=== PATIENT | female | born 1965 | race Caucasian/White ===

== ENCOUNTER 2018-08-15 12:34 | Inpatient (IN) | payer SELFPAY ==
[~2018-08-15] VITALS: Ht 144.8 cm; Wt 99.8 kg
--- NOTE | 2018-08-15 13:27 | ER Report ---
History and Physical Time Seen By MD: 13:27 Allergies: Coded Allergies: Sulfa (Sulfonamide Antibiotics) (Verified Allergy, Unknown, 08/15/18) cefuroxime (Verified Allergy, Unknown, 08/15/18) Home Meds Reported Medications Lisinopril (LISINOPRIL) 20 Mg Tablet, 20 MG PO QDAY, TAB 08/15/18 Metoprolol Succinate (METOPROLOL SUCCINATE) 25 Mg Tab.er.24h, 1 TAB PO QDAY, TAB 08/15/18 Azithromycin (ZITHROMAX) 250 Mg Tablet, 1 TAB PO QDAY, TAB 08/15/18 Budesonide (BUDESONIDE) 0.25 Mg/2 Ml Ampul.neb, 0.25 MG IH BID, ML 08/15/18 Prednisone (PREDNISONE) 20 Mg Tablet, 20 MG PO BID, TAB 08/15/18 Albuterol Sulfate 90 Mcg/Act (PROAIR HFA 90 MCG/ACT) 8.5 Gm Hfa.aer.ad, 1-2 PUFF IH 3-4XD, INHALER 08/15/18 Mometasone/Formoterol (DULERA 100 MCG/5 MCG INHALER) 13 Gm Inh, 13 GM INH, INH 08/15/18 Depart Departure Condition: Stable Disposition: HOME OR SELF-CARE SAM WALTON Aug 15, 2018 13:27
[2018-08-15] MEDS ORDERED: AZIT-1 PO (13:33)
[2018-08-15] MEDS ORDERED: PRED20TA6 PO (13:33)
[2018-08-15] MEDS ORDERED: BUDE0.256 IH (13:33)
[2018-08-15] MEDS ORDERED: ALBU8.5H IH (13:33)
[2018-08-15] MEDS ORDERED: DUL100/5PT INH (13:33)
[2018-08-15] MEDS ORDERED: LISI20TA29 PO ×2 (13:33→17:13)
[2018-08-15] MEDS ORDERED: METO25TA23 PO (13:33)
--- NOTE | 2018-08-15 13:42 | ER Report ---
History and Physical Time Seen By MD: 13:42 Hx. of Stated Complaint: presents from home for increasing L leg pain x 1 week, increased SOB, was due for CT scan in June but did not go. HPI/ROS CHIEF COMPLAINT: Shortness breath, left lower extremity swelling, increased dyspnea HISTORY OF PRESENT ILLNESS: Patient is a 53-year-old female with a history of asthma here with complaints of left lower extremity edema, increasing shortness breath, hypoxia in the setting of asthma with suspected exacerbation. Patient reportedly was seen several days ago at urgent care several days ago and placed on prednisone, Z-Chong for suspected may acquired pneumonia. Patient reports increased dyspnea, cough, left lower extremity calf pain and swelling. Patient was found to be hypoxic in the 80s with no prior supplemental oxygen r equirement. She is a current smoker of approximately one half pack per day. REVIEW OF SYSTEMS: Constitutional: No fever, no chills. Eyes: No discharge. ENT: No sore throat. Cardiovascular: + mild chest pain, no palpitations. Respiratory: + cough, + increased shortness of breath. Gastrointestinal: No abdominal pain, no vomiting. Genitourinary: No hematuria. Musculoskeletal: + left calf tenderness x 1 week Skin: No rashes. Neurological: No headache. Allergies: Coded Allergies: Sulfa (Sulfonamide Antibiotics) (Verified Allergy, Unknown, 08/15/18) cefuroxime (Verified Allergy, Unknown, 08/15/18) Home Meds Active Scripts Iron Ag,Ps/C/Fa6/B12/Zn/SA/Sto (Niferex Tablet) 150MG-60-1 Tablet, 1 TAB PO BID, #60 TAB 1 Refill Prov:SAM SOLER MD 08/16/18 Oxycodone Hcl (OXYCODONE HCL) 5 Mg Tablet, 5-10 MG PO Q6H PRN for PAIN for 7 Days, #30 TAB 0 Refills Prov:SAM SOLER MD 08/16/18 Enoxaparin Sodium (LOVENOX) 100 Mg/1 Ml Disp.syrin, 100 MG SQ Q12H for 3 Days, #6 SYR Prov:SAM SOLER MD 08/16/18 Warfarin Sodium (COUMADIN) 5 Mg Tablet, 5 MG PO QDAY@13 for 30 Days, #30 TAB 0 Refills Prov:SAM SOLER MD 08/16/18 Reported Medications Lisinopril (LISINOPRIL) 20 Mg Tablet, 20 MG PO QDAY, TAB 08/15/18 Metoprolol Succinate (METOPROLOL SUCCINATE) 25 Mg Tab.er.24h, 1 TAB PO QDAY, TAB 08/15/18 Azithromycin (ZITHROMAX) 250 Mg Tablet, 1 TAB PO QDAY, TAB 08/15/18 Prednisone (PREDNISONE) 20 Mg Tablet, 20 MG PO BID, TAB 08/15/18 Albuterol Sulfate 90 Mcg/Act (PROAIR HFA 90 MCG/ACT) 8.5 Gm Hfa.aer.ad, 1-2 PUFF IH 3-4XD, INHALER 08/15/18 Mometasone/Formoterol (DULERA 100 MCG/5 MCG INHALER) 13 Gm Inh, 13 GM INH, INH 08/15/18 Discontinued Reported Medications Budesonide (BUDESONIDE) 0.25 Mg/2 Ml Ampul.neb, 0.25 MG IH BID, ML 08/15/18 Lisinopril (LISINOPRIL) 10 Mg Tablet, 25 MG PO QDAY, TAB 08/15/18 Lisinopril (LISINOPRIL) 20 Mg Tablet, 20 MG PO QDAY, TAB 08/15/18 Constitutional Vital Sign - Last 24 Hours 08/15/18 08/15/18 08/15/18 08/15/18 13:33 13:56 13:56 14:02 Temp 98.5 Pulse 73 74 76 Resp 16 18 18 B/P (MAP) 149/97 Pulse Ox 86 95 O2 Delivery Room Air Nasal Cannula O2 Flow Rate 2.0 08/15/18 08/15/18 08/15/18 08/15/18 14:02 14:20 14:22 15:37 Pulse 72 68 Resp 16 16 B/P (MAP) 149/97 (114) 139/85 (103) Pulse Ox 94 94 92 O2 Delivery Nasal Cannula Room Air Nasal Cannula O2 Flow Rate 2.0 2 2.0 2 Physical Exam General Appearance: The patient is alert, has no immediate need for airway protection and no signs of toxicity. Mild distress secondary to shortness of breath. Eyes: Pupils equal and round no pallor or injection. ENT, Mouth: Mucous membranes are moist. Respiratory: There are no retractions, lungs are clear to auscultation. Cardiovascular: Regular rate and rhythm. Gastrointestinal: Abdomen is soft and non tender, no masses, bowel sounds normal. Neurological: NV intact with no focal deficits Skin: Warm and dry, no rashes. Musculoskeletal: Neck is supple non tender. Left calf tenderness with mild edema without erythema DIFFERENTIAL DIAGNOSIS: After history and physical exam differential diagnosis was considered for shortness of breath including but not limited to pulmonary infectious process, COPD, asthma, pulmonary embolus and congestive heart failure, DVT Medical Decision Making Data Points Result Diagram: 08/16/18 0353 08/16/18 0353 Laboratory Hematology Test 08/15/18 13:35 08/15/18 16:06 Activated Partial Thromboplast Time 26 seconds (23-35) Total Bilirubin 0.4 mg/dl (0.2-1.3) Aspartate Amino Transf (AST/SGOT) 48 U/L (0-35) Alanine Aminotransferase (ALT/SGPT) 113 U/L (0-56) Alkaline Phosphatase 92 U/L (0-126) Troponin I < 0.012 ng/ml B-Type Natriuretic Peptide 357 pg/ml (0-100) Total Protein 7.1 g/dl (6.3-8.2) Albumin 4.1 g/dl (3.5-5.0) Urine Color Yellow Urine Clarity Clear Urine pH 6.0 pH (4.8-9.5) Urine Specific [place] 1.036 Urine Protein Negative mg/dL (NEGATIVE) Urine Glucose (UA) Negative mg/dL (NEGATIVE) Urine Ketones Negative mg/dL (NEGATIVE) Urine Blood Negative (NEGATIVE) Urine Nitrite Negative (NEGATIVE) Urine Bilirubin Negative (NEGATIVE) Urine Urobilinogen Negative mg/dL (0.2-1.9) Urine Leukocyte Esterase Negative (NEGATIVE) Urine RBC <1 /HPF (0-2/HPF) Urine WBC 1 /HPF (0-5/HPF) Urine Squamous Epithelial Cells Few /LPF (</=FEW) Urine Bacteria Negative /HPF (NONE-FEW) Urine Mucus None /HPF (NONE-FEW) Chemistry Test 08/15/18 13:35 08/15/18 16:06 Activated Partial Thromboplast Time 26 seconds (23-35) Total Bilirubin 0.4 mg/dl (0.2-1.3) Aspartate Amino Transf (AST/SGOT) 48 U/L (0-35) Alanine Aminotransferase (ALT/SGPT) 113 U/L (0-56) Alkaline Phosphatase 92 U/L (0-126) Troponin I < 0.012 ng/ml B-Type Natriuretic Peptide 357 pg/ml (0-100) Total Protein 7.1 g/dl (6.3-8.2) Albumin 4.1 g/dl (3.5-5.0) Urine Color Yellow Urine Clarity Clear Urine pH 6.0 pH (4.8-9.5) Urine Specific [place] 1.036 Urine Protein Negative mg/dL (NEGATIVE) Urine Glucose (UA) Negative mg/dL (NEGATIVE) Urine Ketones Negative mg/dL (NEGATIVE) Urine Blood Negative (NEGATIVE) Urine Nitrite Negative (NEGATIVE) Urine Bilirubin Negative (NEGATIVE) Urine Urobilinogen Negative mg/dL (0.2-1.9) Urine Leukocyte Esterase Negative (NEGATIVE) Urine RBC <1 /HPF (0-2/HPF) Urine WBC 1 /HPF (0-5/HPF) Urine Squamous Epithelial Cells Few /LPF (</=FEW) Urine Bacteria Negative /HPF (NONE-FEW) Urine Mucus None /HPF (NONE-FEW) Coagulation Test 08/15/18 13:35 Activated Partial Thromboplast Time 26 seconds Urinalysis Test 08/15/18 16:06 Urine Color Yellow Urine Clarity Clear Urine pH 6.0 pH (4.8-9.5) Urine Specific [place] 1.036 Urine Protein Negative mg/dL (NEGATIVE) Urine Glucose (UA) Negative mg/dL (NEGATIVE) Urine Ketones Negative mg/dL (NEGATIVE) Urine Blood Negative (NEGATIVE) Urine Nitrite Negative (NEGATIVE) Urine Bilirubin Negative (NEGATIVE) Urine Urobilinogen Negative mg/dL (0.2-1.9) Urine Leukocyte Esterase Negative (NEGATIVE) Urine RBC <1 /HPF (0-2/HPF) Urine WBC 1 /HPF (0-5/HPF) Urine Squamous Epithelial Cells Few /LPF (</=FEW) Urine Bacteria Negative /HPF (NONE-FEW) Urine Mucus None /HPF (NONE-FEW) EKG/Imaging Monitor Interpretation: Normal Sinus Rhythm Imaging Left lower extremity venous Doppler duplex ultrasound scan. HISTORY: Left calf swelling, pulmonary embolism. COMPARISON: Chest CTA scan 08/15/2018. A venous color flow Doppler duplex ultrasound scan with spectral analysis was performed on the left lower extremity. Noncompressible thrombus is present in the trifurcation veins, popliteal vein, superficial femoral vein, common femoral vein, and profunda femoris vein. The left iliac veins are obscured. IMPRESSION: Extensive left lower extremity deep vein thrombosis. CTA CHEST WW/O CNTR (PULM ANG) HISTORY: RESP DISTRESS ADDITIONAL HISTORY: None. TECHNIQUE: CTA chest with intravenous contrast. Axial imaging acquired following administration of IV contrast timed for maximum opacification of the pulmonary arterial vasculature. Slab 3-D MIP reconstructed images were also created for further evaluation and interpretation. Reconstruction of the source data set includes multiplanar 2-D in the sagittal and coronal planes and 3-D reconstructed coronal slab MIP series. 3-D images were created by the technologist.Dose Lowering Technique One of the following dose optimization techniques was utilized in the performance of this exam: Automated exposure control; adjustment of the mA and/or kV according to the patient's size; or use of an iterative reconstruction technique. Specific details can be referenced in the facility's radiology CT exam operational policy. CONTRAST: 75 mL Isovue-370 COMPARISON: None. FINDINGS: Lungs/pleura: Negative. Heart/vessels: Pulmonary emboli is identified in the lobar segmental and subsegmental arterial branches to the right lower lobe in the lobar and segmental vessels to the right middle lobe, segmental and subsegmental arterial branches to the left lower lobe. Mediastinum/lymph nodes: Negative. Visualized upper abdomen: Negative. Bones/soft tissues: Negative. Additional findings: None IMPRESSION: There is a moderate volume of pulmonary emboli in the lobar segmental and subsegmental arterial branches to the right lower lobe, lobar and segmental vessels to the right middle lobe and segmental and subsegmental arterial branches to the left lower lobe. ED Course/Re-evaluation ED Course Patient is a 53-year-old female here with complaints of increasing dyspnea over the past week, left lower extremity swelling at the calf with mild edema acutely worsen or past several days. Patient does have history significant for asthma, active smoking history approximately one half pack per day. She was seen several days ago at urgent care and placed on prednisone and azithromycin. Today she reported worsening symptoms prompting evaluation. Due to the patient's history and physical examination, decision was made to do a CT PE and a duplex of the left lower extremity. Patient was noted to have a lateral pulmonary embolisms of the right lower lobe, right middle lobe, left lower lobe and left lower extremity DVT. Patient was also noted to have leukocytosis of 17.9. Lungs are clear to auscultation at time of evaluation. She was placed on supplemental oxygen which she does not require baseline due to hypoxia. I discussed the patient with hospitalist and give the patient a dose of Levaquin and Lovenox. Heparin had been canceled after discussing with the hospitalist. Patient also received IV fluids, DuoNeb. Patient remained otherwise hemodynamically stable throughout course. Patient was admitted to the hospitalist service in stable condition. Decision to Disposition Date: Aug 15, 2018 Decision to Disposition Time: 14:00 Depart Departure Latest Vital Signs Vital Signs Date Time Temp Pulse Resp B/P (MAP) Pulse Ox O2 Delivery O2 Flow Rate FiO2 08/15/18 15:37 68 16 139/85 (103) 92 Nasal Cannula 2 08/15/18 13:33 98.5 Impression: Primary Impression: PE (pulmonary thromboembolism) Condition: Improved Disposition: Admitted from ER (admitted to hospitalist service) New Scripts Iron Ag,Ps/C/Fa6/B12/Zn/SA/Sto (Niferex Tablet) 150MG-60-1 Tablet 1 TAB PO BID, #60 TAB 1 Refill Prov: SAM SOLER MD 08/16/18 Oxycodone Hcl (OXYCODONE HCL) 5 Mg Tablet 5-10 MG PO Q6H PRN for PAIN for 7 Days, #30 TAB 0 Refills Prov: SAM SOLER MD 08/16/18 Enoxaparin Sodium (LOVENOX) 100 Mg/1 Ml Disp.syrin 100 MG SQ Q12H for 3 Days, #6 SYR Prov: SAM SOLER MD 08/16/18 Warfarin Sodium (COUMADIN) 5 Mg Tablet 5 MG PO QDAY@13 for 30 Days, #30 TAB 0 Refills Prov: SAM SOLER MD 08/16/18 PAM RICHARDSON DO Aug 15, 2018 13:42
[2018-08-15] MEDS ORDERED: NS(*) 0.9% 1000 ML BAG 1,000 ML IV ONE (13:43)
[2018-08-15] MEDS ORDERED: ALBUTEROL/IPRATROPIUM 3 ML NEB NEB ONE (13:45)
[2018-08-15 14:19] LABS: INR 1.09
[2018-08-15 14:24] LABS: PLATELET COUNT, AUTOMATED 239 K/uL (150-450)
--- NOTE | 2018-08-15 14:24 | EKG ---
FAC[facility] PATIENT NAME: MARY WELDON : [id number] MR: [id number] V: [id number] EXAM DATE: ORDERING PHYSICIAN: PAM RICHARDSON TECHNOLOGIST: PAULA Test Reason : L LEG PAIN Blood Pressure : / mmHG Vent. Rate : 071 BPM Atrial Rate : 071 BPM P-R Int : 134 ms QRS Dur : 084 ms QT Int : 374 ms P-R-T Axes : -09 025 -45 degrees QTc Int : 406 ms Normal sinus rhythm Anterior infarct , age undetermined Diffuse T inversion Abnormal ECG No previous ECGs available Confirmed by JETT PRATT ([id number]) on 08/15/2018 8:42:25 PM Referred By: DEBRA Confirmed By:JETT PRATT
[2018-08-15] MEDS ORDERED: NS(*) 0.9% 50 ML BAG 50 ML ONE (14:40)
[2018-08-15] MEDS ORDERED: IOPAMIDOL 76% 75 ML INFUS BTL 75 ML ONE (14:40)
--- NOTE | 2018-08-15 15:47 | RADIOLOGY IMAGING REPORT ---
FACILITY: [facility] [place] PATIENT NAME: Blessing Leblanc : 1965 MR: [id number] V: [id number] EXAM DATE: [id number] ORDERING PHYSICIAN: PAM RICHARDSON TECHNOLOGIST: Location: [facility] [place] Patient: Blessing Leblanc : 1965 Visit/Account:[id number] Date of Sevice: 08/15/2018 CTA CHEST WW/O CNTR (PULM ANG) HISTORY: RESP DISTRESS ADDITIONAL HISTORY: None. TECHNIQUE: CTA chest with intravenous contrast. Axial imaging acquired following administration of IV contrast timed for maximum opacification of the pulmonary arterial vasculature. Slab 3-D MIP carolann nstructed images were also created for further evaluation and interpretation. Reconstruction of the [facility] data set includes multiplanar 2-D in the sagittal and coronal planes and 3-D reconstructed saúl nal slab MIP series. 3-D images were created by the technologist.Dose Lowering Technique One of the following dose optimization techniques was utilized in the performance of this exam: Autom ated exposure control; adjustment of the mA and/or kV according to the patient's size; or use of an i terative reconstruction technique. Specific details can be referenced in the facility's radiology C T exam operational policy. CONTRAST: 75 mL Isovue-370 COMPARISON: None. FINDINGS: Lungs/pleura: Negative. Heart/vessels: Pulmonary emboli is identified in the lobar segmental and subsegmental arterial branc hes to the right lower lobe in the lobar and segmental vessels to the right middle lobe, segmental an d subsegmental arterial branches to the left lower lobe. Mediastinum/lymph nodes: Negative. Visualized upper abdomen: Negative. Bones/soft tissues: Negative. Additional findings: None IMPRESSION: There is a moderate volume of pulmonary emboli in the lobar segmental and subsegmental arterial branc hes to the right lower lobe, lobar and segmental vessels to the right middle lobe and segmental and s ubsegmental arterial branches to the left lower lobe. Results were called to PAM RICHARDSON at 08/15/2018 3:32 PM. Report Dictated By: Lea Welch MD at 08/15/2018 3:27 PM Report E-Signed By: Lea Welch MD at 08/15/2018 3:42 PM WSN:MARIA ANTONIACIVN
[2018-08-15] MEDS ORDERED: [UNRECOGNIZED DRUG - OTHER] IV SCH ×2 (15:50→16:10)
[2018-08-15] MEDS ORDERED: LEVOFLOXACIN/D5W 750 MG/150 ML 150 ML IVPB ONE (15:50)
[2018-08-15] MEDS ORDERED: HEPARIN (PORC) 5000 UN/ML VIAL IVP ONE ×2 (15:50→16:05)
--- NOTE | 2018-08-15 16:16 | RADIOLOGY IMAGING REPORT ---
FACILITY: [facility] PATIENT NAME: Blessing Leblanc : 1965 MR: [id number] V: [id number] EXAM DATE: ORDERING PHYSICIAN: PAM RICHARDSON TECHNOLOGIST: Location: [facility] [place] Patient: Blessing Leblanc : 1965 Visit/Account:[id number] Date of Sevice: 08/15/2018 Left lower extremity venous Doppler duplex ultrasound scan. HISTORY: Left calf swelling, pulmonary embolism. COMPARISON: Chest CTA scan 08/15/2018. A venous color flow Doppler duplex ultrasound scan with spectral analysis was performed on the left l ower extremity. Noncompressible thrombus is present in the trifurcation veins, popliteal vein, super ficial femoral vein, common femoral vein, and profunda femoris vein. The left iliac veins are obscur ed. IMPRESSION: Extensive left lower extremity deep vein thrombosis. The patient's provider has been paged by the Imaging Nurse Aide Evaluator at 4:15 PM on 08/15/2018.. Report Dictated By: Jaren Russell MD at 08/15/2018 4:07 PM Report E-Signed By: Jaren Russell MD at 08/15/2018 4:12 PM WSN:[email or web address]
[2018-08-15 17:01] VITALS: BP 133/78
[2018-08-15] MEDS ORDERED: LISI-362 PO (17:12)
[2018-08-15 19:02] VITALS: BP 118/73
[2018-08-15] MEDS ORDERED: ALBUTEROL 2.5 MG/3 ML NEB NEB PRN (20:05)
[2018-08-15] MEDS ORDERED: PANTOPRAZOLE SOD 40 MG TABEC PO ONE (20:05)
[2018-08-15] MEDS: WARFARIN SOD 5 MG TAB PO SCH (20:46)
[2018-08-15] MEDS ORDERED: ACETAMINOPHEN 500 MG TAB PO PRN (20:50)
[2018-08-15] MEDS ORDERED: oxyCODONE HCL 5 MG CAP PO PRN (20:50)
[2018-08-15] MEDS ORDERED: NICOTINE 14 MG/24 HR PATCH TD SCH (21:00)
[2018-08-15] MEDS ORDERED: ENOXAPARIN 100 MG/ML SYR SC SCH (21:00)
--- NOTE | 2018-08-15 21:01 | History & Physical ---
History of Present Illness History of Present Illness 53yo female with a h/o cardiomyopathy, obesity, and COPD who came to the ER for left leg pain and SOB. She developed left leg pain about a week ago. She thinks she woke up with it and denies any trauma. The pain isn't the medial calf and radiates around the patella to the popliteal fossa. It was mild at first and she thought it was related to over use. However, it has progressively worsened such that she has had difficulty ambulating. She thought she was having another pneumonia because she was getting SOB, her home pulse oximeter read about 70% and had a productive cough, so went to Urgent care a couple of days ago. They started her on a Z-kisha and a prednisone taper. She, initially, was hypoxic, but they were able to get her room air saturations up with nebulizer treatments. The has never had a DVT or PE. She does smoke 1/2 ppd. She reports that her cardiomyopathy was found incidentally on pre-op work up for a sinus surgery 3 years ago. She ended up getting a heart catheterization. She doesn't know the details of what was found but she is on Toprol. In the ER, she was given levofloxacin, DuoNeb, and IVF. History Problems: (1) HTN (hypertension) Status: Chronic (2) Cardiomyopathy Status: Chronic (3) COPD (chronic obstructive pulmonary disease) Status: Chronic (4) Obesity Home Meds Reported Medications Lisinopril (LISINOPRIL) 20 Mg Tablet, 20 MG PO QDAY, TAB 08/15/18 Metoprolol Succinate (METOPROLOL SUCCINATE) 25 Mg Tab.er.24h, 1 TAB PO QDAY, TAB 08/15/18 Azithromycin (ZITHROMAX) 250 Mg Tablet, 1 TAB PO QDAY, TAB 08/15/18 Budesonide (BUDESONIDE) 0.25 Mg/2 Ml Ampul.neb, 0.25 MG IH BID, ML 08/15/18 Prednisone (PREDNISONE) 20 Mg Tablet, 20 MG PO BID, TAB 08/15/18 Albuterol Sulfate 90 Mcg/Act (PROAIR HFA 90 MCG/ACT) 8.5 Gm Hfa.aer.ad, 1-2 PUFF IH 3-4XD, INHALER 08/15/18 Mometasone/Formoterol (DULERA 100 MCG/5 MCG INHALER) 13 Gm Inh, 13 GM INH, INH 08/15/18 Discontinued Reported Medications Lisinopril (LISINOPRIL) 10 Mg Tablet, 25 MG PO QDAY, TAB 08/15/18 Lisinopril (LISINOPRIL) 20 Mg Tablet, 20 MG PO QDAY, TAB 08/15/18 Allergies: Coded Allergies: Sulfa (Sulfonamide Antibiotics) (Verified Allergy, Unknown, 08/15/18) cefuroxime (Verified Allergy, Unknown, 08/15/18) Patient History: FH: COPD (chronic obstructive pulmonary disease) MOTHER FH: diabetes mellitus MOTHER FH: heart disease MOTHER FH: hypercholesterolemia MOTHER FH: hypertension MOTHER Pulmonary hypertension MOTHER Other Social/Family Hx No alcohol use. Hx Smoking: Yes (1/2 ppd) Exposure to Second Hand Smoke?: Yes Caffeine Intake: Tea Hx Substance Use Disorder: No Review of Systems All Systems Reviewed/Normal: Yes, Except as Noted Exam Vital Signs Vital Signs Date Time Temp Pulse Resp B/P (MAP) Pulse Ox O2 Delivery O2 Flow Rate FiO2 08/15/18 20:01 93 Nasal Cannula 1.5 08/15/18 19:02 97.3 84 20 118/73 (88) General Appearance: Alert, Awake, No Acute Distress Neuro: No Gross deficits Eyes: PERRLA ENT: Moist Mucous Membranes Cardiovascular: Regular Rate and Rhythm, No JVD Respiratory: Clear to Auscultation GI: Abd Soft and Non-Tender Musculoskeletal: Other (positive rolanda's sign on left. Some medial thigh pain with palpation. No difference noted in leg size of visual exam) Extremities: Edema Medical Decision Making Data Points Result Diagram: 08/15/18 1335 08/15/18 133 Item Value Date Time Mean Corpuscular Volume 70.1 fL L 08/15/18 133 Mean Corpuscular Hemoglobin 20.9 pg L 08/15/18 1335 Red Cell Distribution Width 20.7 % H 08/15/18 1335 Neutrophils (%) (Auto) 72.0 % 08/15/18 1335 Prothromb Time International Ratio 1.09 08/15/18 1335 B-Type Natriuretic Peptide 357 pg/ml H 08/15/18 1335 Troponin I < 0.012 ng/ml 08/15/18 1335 Aspartate Amino Transf (AST/SGOT) 48 U/L H 08/15/18 1335 Total Bilirubin 0.4 mg/dl 08/15/18 1335 Alanine Aminotransferase (ALT/SGPT) 113 U/L H 08/15/18 1335 Alkaline Phosphatase 92 U/L 08/15/18 1335 Blood Urea Nitrogen 41 mg/dl H 08/15/18 1335 Creatinine 1.10 mg/dl H 08/15/18 1335 Urine RBC <1 /HPF 08/15/18 1606 Urine WBC 1 /HPF 08/15/18 1606 Urine Squamous Epithelial Cells Few /LPF 08/15/18 1606 Urine Bacteria Negative /HPF 08/15/18 1606 Urine Mucus None /HPF 08/15/18 1606 EKG / Imaging EKG Interpretation NSR, poor r wave progression, and diffuse T wave inversion Imaging Venogram - Extensive left lower extremity deep vein thrombosis. Chest CTA - There is a moderate volume of pulmonary emboli in the lobar segmental and subsegmental arterial branches to the right lower lobe, lobar and segmental vessels to the right middle lobe and segmental and subsegmental arterial branches to the left lower lobe. Assessment and Plan Problems: (1) PE (pulmonary thromboembolism) Status: Acute Assessment & Plan: She presented with a couple days of "bronchitis" symptoms and hypoxia. She was found to have moderate volume bilateral PE. She was started on Lovenox in the ER. One complicating factor is that she has a microcytic anemia. No reports of blood in stool or melena. Will draw a CBC and iron studies before the next dose of Lovenox. She is to get dose of Protonix this evening and in the morning. Will guaiac stools. See below. She will get a dose of warfarin tonight. Daily INR. (2) Microcytic anemia Status: Chronic Assessment & Plan: It is unclear how long she has had this. Will do a work up and watch closely for bleeding. (3) COPD (chronic obstructive pulmonary disease) Status: Chronic Assessment & Plan: Lungs are clear. She was started on a Z-kisha and prednisone taper on 08/12, which she felt has been helping. She received a dose of Levofloxacin in the ER, so will restart azithromycin tomorrow and continue prednisone. Chronic Dulera will be continued with albuterol nebs prn. She reports being on a budesonide neb, but will hold for now because it is a redundant inhaled steroid. (4) Cardiomyopathy Status: Chronic Assessment & Plan: She is reports that 3 years ago this was discovered incidentally on a pre-op work up. She had a heart catheterization and was started on Toprol. The patient isn't sure about EF or other details. Continue Toprol. (5) HTN (hypertension) Status: Chronic Assessment & Plan: Continue lisinopril with parameters. (6) Obesity Venous Thromboembolism Antithrombotics Is Pt On Any Antithrombotics?: Yes Exam Sepsis Risk: No Definite Risk JETT PRATT MD Aug 15, 2018 21:01
[2018-08-15 22:49] VITALS: BP 133/88
[2018-08-16 03:11] VITALS: BP 144/96
[2018-08-16 04:05] LABS: INR 1.14
[2018-08-16 04:28] LABS: PLATELET COUNT, AUTOMATED 194 K/uL (150-450)
[2018-08-16] MEDS ORDERED: ENOXAPARIN 100 MG/ML SYR SC SCH ×2 (05:00→07:00)
[2018-08-16] MEDS ORDERED: MOMETASONE/FORMOT 100MCG/5 MCG IH SCH (06:00)
[2018-08-16 07:59] VITALS: Ht 144.8 cm; Wt 99.8 kg
[2018-08-16 08:23] VITALS: BP 123/85
[2018-08-16] MEDS ORDERED: predniSONE 20 MG TAB PO SCH (09:00)
[2018-08-16] MEDS ORDERED: PANTOPRAZOLE SOD 40 MG TABEC PO SCH (09:00)
[2018-08-16] MEDS ORDERED: METOPROLOL SUCC XL 25 MG TABCR PO SCH (09:00)
[2018-08-16] MEDS ORDERED: LISINOPRIL 20 MG TAB PO SCH (09:00)
[2018-08-16] MEDS ORDERED: ENOX100D5 SQ (10:37)
[2018-08-16] MEDS ORDERED: WARF-1 PO (10:37)
[2018-08-16] MEDS ORDERED: OXYC5TAB38 PO (10:37)
[2018-08-16] MEDS ORDERED: IRON1TAB34 PO (10:37)
--- NOTE | 2018-08-16 10:48 | Hospitalist Depart ---
Discharge Summary Reason for Hosp/Final Diag: (1) PE (pulmonary thromboembolism) Status: Acute Hospital Course & Plan: She presented with a couple days of "bronchitis" symptoms (cough and dyspnea). She was also found to be hypoxic. On CT pulmonary angiogram showed moderate volume bilateral pulmonary emboli. She was started on Lovenox in the ER and oral warfarin therapy was initiated. She remained stable with respect to her pulse and blood pressure. She was borderline hypoxic with room air oxygen saturations in 85-86% range and will be discharged on 1L oxygen continuous. She was doing fairly well and wished to be discharged home if at all possible. She stated she would follow up very closely with her primary care at the local urgent care center. She will be discharged on Lovenox 100mg SQ q12hrs and warfarin 5mg daily. She will need to have a follow up protime/INR on Saturday08/18/18. She was given a Rx for Lovenox for three days of therapy with one refill if needed. If her protime/INR is not therapeutic on Saturday she will need to continue the Lovenox until her INR is >2.0. She will need a minimum of 6-9 months of treatment with anticoagulation. One complicating factor is that she has a microcytic anemia. No reports of obvious blood or melena in her stools. She does, however, have a history of "borderline" anemia throughout her adulthood. She has had heavy menses (7 days of heavy flow with pad changes several times a day) for more than 30 years following two pregnancies. She is now post-menopausal and reports no vaginal/uterine bleeding for 2-3 years. Iron studies are consistent with iron deficiency anemia. She will need to have this fully evaluated. (2) Microcytic anemia Status: Chronic Hospital Course & Plan: (See above). It is unclear how long she has had this, but it sounds as if it is most likely related to her history of heavy menses. She has not had colonoscopy screening as of yet. She was advised she will need t o follow up with her primary care provider very closely and will need to have her colon cancer screening in near future. She was started on Niferex 150 PO BID. She will need follow up on her labs periodically. (3) COPD (chronic obstructive pulmonary disease) Status: Chronic Hospital Course & Plan: Lungs are clear. She was started on a Z-Chong and prednisone taper on 08/12/18, which she felt has been helping. She will complete this regimen. She will continue her Dulera and albuterol prn. (4) Cardiomyopathy Status: Chronic Hospital Course & Plan: She is reports that 3 years ago this was discovered incidentally on a pre-op work up. She had a heart catheterization and was started on metoprolol. The patient isn't sure about much more regarding this or other details. (5) HTN (hypertension) Status: Chronic Hospital Course & Plan: Continue lisinopril. (6) Obesity Status: Chronic Departure Weight (Pounds): 220 Result Diagram: 08/16/18 03508/16/18 0353 Item Value Date Time White Blood Count 17.9 k/uL H 08/15/18 1335 Hemoglobin 10.5 g/dL L 08/15/18 1335 Hematocrit 35.4 % 08/15/18 1335 Platelet Count 239 K/uL 08/15/18 1335 Sodium Level 140 mmol/L 08/15/18 1335 Potassium Level 4.7 mmol/L 08/15/18 1335 Chloride Level 103 mmol/L 08/15/18 1335 Carbon Dioxide Level 24 mmol/L 08/15/18 1335 Blood Urea Nitrogen 41 mg/dl H 08/15/18 1335 Creatinine 1.10 mg/dl H 08/15/18 1335 Glomerular Filtration Rate Calc 52.2 08/15/18 1335 Random Glucose 90 mg/dl 08/15/18 1335 Calcium Level 9.6 mg/dl 08/15/18 1335 Total Bilirubin 0.4 mg/dl 08/15/18 1335 Aspartate Amino Transf (AST/SGOT) 48 U/L H 08/15/18 1335 Alanine Aminotransferase (ALT/SGPT) 113 U/L H 08/15/18 1335 Troponin I < 0.012 ng/ml 08/15/18 1335 Alkaline Phosphatase 92 U/L 08/15/18 1335 Total Protein 7.1 g/dl 08/15/18 1335 Albumin 4.1 g/dl 08/15/18 1335 B-Type Natriuretic Peptide 357 pg/ml H 08/15/18 1335 Iron Level 17 ug/dl L 08/16/18 0353 Total Iron Binding Capacity 488 ug/dl 08/16/18 0353 Percent Iron Saturation 3.5 % 08/16/18 0353 Prothrombin Time 14.6 seconds H 08/16/18 0353 Prothromb Time International Ratio 1.14 08/16/18 0353 Prothrombin Time 14.2 seconds 08/15/18 1335 Activated Partial Thromboplast Time 26 seconds 08/15/18 1335 Prothromb Time International Ratio 1.09 08/15/18 1335 Urine Color Yellow 08/15/18 1606 Urine Clarity Clear 08/15/18 1606 Urine pH 6.0 pH 08/15/18 1606 Urine Specific [place] 1.036 08/15/18 1606 Urine Protein Negative mg/dL 08/15/18 1606 Urine Glucose (UA) Negative mg/dL 08/15/18 1606 Urine Ketones Negative mg/dL 08/15/18 1606 Urine Blood Negative 08/15/18 1606 Urine Nitrite Negative 08/15/18 1606 Urine Bilirubin Negative 08/15/18 1606 Urine Urobilinogen Negative mg/dL 08/15/18 1606 Urine Leukocyte Esterase Negative 08/15/18 1606 Urine RBC <1 /HPF 08/15/18 1606 Urine WBC 1 /HPF 08/15/18 1606 Urine Squamous Epithelial Cells Few /LPF 08/15/18 1606 Urine Bacteria Negative /HPF 08/15/18 1606 Urine Mucus None /HPF 08/15/18 1606 Imaging PATIENT NAME: Mary Leblanc : 1965 MR: [id number] V: [id number] EXAM DATE: [id number] ORDERING PHYSICIAN: PAM RICHARDSON TECHNOLOGIST: Location: [facility] [place] Patient: Mary Leblanc : 1965 Visit/Account:[id number] Date of Sevice: 08/15/2018 CTA CHEST WW/O CNTR (PULM ANG) HISTORY: RESP DISTRESS ADDITIONAL HISTORY: None. TECHNIQUE: CTA chest with intravenous contrast. Axial imaging acquired following administration of IV contrast timed for maximum opacification of the pulmonary arterial vasculature. Slab 3-D MIP reconstructed images were also created for further evaluation and interpretation. Reconstruction of the source data set includes multiplanar 2-D in the sagittal and coronal planes and 3-D reconstructed coronal slab MIP series. 3-D images were created by the technologist.Dose Lowering Technique One of the following dose optimization techniques was utilized in the performance of this exam: Automated exposure control; adjustment of the mA and/or kV according to the patient's size; or use of an iterative reconstruction technique. Specific details can be referenced in the facility's radiology CT exam operational policy. CONTRAST: 75 mL Isovue-370 COMPARISON: None. FINDINGS: Lungs/pleura: Negative. Heart/vessels: Pulmonary emboli is identified in the lobar segmental and subsegmental arterial branches to the right lower lobe in the lobar and segmental vessels to the right middle lobe, segmental and subsegmental arterial branches to the left lower lobe. Mediastinum/lymph nodes: Negative. Visualized upper abdomen: Negative. Bones/soft tissues: Negative. Additional findings: None IMPRESSION: There is a moderate volume of pulmonary emboli in the lobar segmental and subsegmental arterial branches to the right lower lobe, lobar and segmental vessels to the right middle lobe and segmental and subsegmental arterial branches to the left lower lobe. Results were called to PAM RICHARDSON at 08/15/2018 3:32 PM. Report Dictated By: Lea Welch MD at 08/15/2018 3:27 PM Report E-Signed By: Lea Welch MD at 08/15/2018 3:42 PM WSN:[id number] PATIENT NAME: Mary Leblanc : 1965 MR: [id number] V: [id number] EXAM DATE: [id number] ORDERING PHYSICIAN: PAM RICHARDSON TECHNOLOGIST: Location: [facility] [place] Patient: Mary Leblanc : 1965 Visit/Account:[id number] Date of Sevice: 08/15/2018 Left lower extremity venous Doppler duplex ultrasound scan. HISTORY: Left calf swelling, pulmonary embolism. COMPARISON: Chest CTA scan 08/15/2018. A venous color flow Doppler duplex ultrasound scan with spectral analysis was performed on the left lower extremity. Noncompressible thrombus is present in the trifurcation veins, popliteal vein, superficial femoral vein, common femoral vein, and profunda femoris vein. The left iliac veins are obscured. IMPRESSION: Extensive left lower extremity deep vein thrombosis. The patient's provider has been paged by the Imaging Technology Education Teacher at 4:15 PM on 08/15/2018.. Report Dictated By: Jaren Russell MD at 08/15/2018 4:07 PM Report E-Signed By: Jaren Russell MD at 08/15/2018 4:12 PM WSN:[id number] EKG PATIENT NAME: MARY LEBLANC : [id number] MR: [id number] V: [id number] EXAM DATE: ORDERING PHYSICIAN: PAM RICHARDSON TECHNOLOGIST: PAULA Test Reason : L LEG PAIN Blood Pressure : / mmHG Vent. Rate : 071 BPM Atrial Rate : 071 BPM P-R Int : 134 ms QRS Dur : 084 ms QT Int : 374 ms P-R-T Axes : -09 025 -45 degrees QTc Int : 406 ms Normal sinus rhythm Anterior infarct , age undetermined Diffuse T inversion Abnormal ECG No previous ECGs available Confirmed by JETT PRATT ([id number]) on 08/15/2018 8:42:25 PM Referred By: DEBRA Confirmed By:JETT PRATT Condition: Improved Discharge: Home, Self Care Follow-Up Labs: INR (On Saturday08/18/18 at Urgent Care ([facility]).), Other (CBC in 1 week to monitor anemia) Discharge Instructions Home Meds Active Scripts Iron Ag,Ps/C/Fa6/B12/Zn/SA/Sto (Niferex Tablet) 150MG-60-1 Tablet, 1 TAB PO BID, #60 TAB 1 Refill Prov:SAM SOLER MD 08/16/18 Oxycodone Hcl (OXYCODONE HCL) 5 Mg Tablet, 5-10 MG PO Q6H PRN for PAIN for 7 Days, #30 TAB 0 Refills Prov:SAM SOLER MD 08/16/18 Enoxaparin Sodium (LOVENOX) 100 Mg/1 Ml Disp.syrin, 100 MG SQ Q12H for 3 Days, #6 SYR Prov:SAM SOLER MD 08/16/18 Warfarin Sodium (COUMADIN) 5 Mg Tablet, 5 MG PO QDAY@13 for 30 Days, #30 TAB 0 Refills Prov:SAM SOLER MD 08/16/18 Reported Medications Lisinopril (LISINOPRIL) 20 Mg Tablet, 20 MG PO QDAY, TAB 08/15/18 Metoprolol Succinate (METOPROLOL SUCCINATE) 25 Mg Tab.er.24h, 1 TAB PO QDAY, TAB 08/15/18 Azithromycin (ZITHROMAX) 250 Mg Tablet, 1 TAB PO QDAY, TAB 08/15/18 Prednisone (PREDNISONE) 20 Mg Tablet, 20 MG PO BID, TAB 08/15/18 Albuterol Sulfate 90 Mcg/Act (PROAIR HFA 90 MCG/ACT) 8.5 Gm Hfa.aer.ad, 1-2 PUFF IH 3-4XD, INHALER 08/15/18 Mometasone/Formoterol (DULERA 100 MCG/5 MCG INHALER) 13 Gm Inh, 13 GM INH, INH 08/15/18 Discontinued Reported Medications Budesonide (BUDESONIDE) 0.25 Mg/2 Ml Ampul.neb, 0.25 MG IH BID, ML 08/15/18 Lisinopril (LISINOPRIL) 10 Mg Tablet, 25 MG PO QDAY, TAB 08/15/18 Lisinopril (LISINOPRIL) 20 Mg Tablet, 20 MG PO QDAY, TAB 08/15/18 Diet: Regular Activity: As Tolerated, No Exertion Special Instructions: Home oxygen at 1L via nasal cannula continuously. [facility]. Return to ER if any problems. Venous Thromboembolism Antithrombotics Is Pt On Any Antithrombotics?: Yes SAM SOLER MD Aug 16, 2018 10:48
[2018-08-16] MEDS: WARFARIN SOD 5 MG TAB PO SCH (12:13)
--- NOTE | 2018-08-16 15:24 | Antimicrobial Stewardship ---
Antimicrobial Time Out Antimicrobial Stewardship MD Service: Hospitalist Indications: Other (COPD) Antimicrobial Used Zithromax Z-kisah. Patient discharged on 08/16 with Rx to complete Zithromax . Culture Results: N/A LANDON BAER Aug 16, 2018 15:24
[2018-08-16] MEDS ORDERED: AZITHROMYCIN 250 MG TAB PO SCH (21:00)
[2018-08-19] MEDS ORDERED: INFLUENZA VIRUS VAC 0.5ML SYR IM ONLY ONE (09:00)
== END 2018-08-16 12:40 | disposition home or self-care (01) | DRG 176 ==
LOC: ER 13:28 → MED 16:28
PROVIDERS: ADMIT Internal Medicine; ATTEND Internal Medicine
DX: I26.99 Other pulmonary embolism without acute cor pulmonale (principal); I42.9 Cardiomyopathy, unspecified; Z68.42 Body mass index [BMI] 45.0-49.9, adult; I82.432 Acute embolism and thrombosis of left popliteal vein; I82.412 Acute embolism and thrombosis of left femoral vein; I82.812 Embolism and thrombosis of superficial veins of left lower extremity; I82.492 Acute embolism and thrombosis of other specified deep vein of left lower extremity; D50.0 Iron deficiency anemia secondary to blood loss (chronic); I10 Essential (primary) hypertension; R09.02 Hypoxemia; J44.9 Chronic obstructive pulmonary disease, unspecified; E66.9 Obesity, unspecified; F17.210 Nicotine dependence, cigarettes, uncomplicated; Z88.2 Allergy status to sulfonamides; Z88.8 Allergy status to other drugs, medicaments and biological substances
CPT/HCPCS: 36415; 71275; 81001; 82040; 82247; 82310; 82374; 82435; 82565; 82947; 83540; 83550; 83880; 84075; 84132; 84155; 84295; 84450; 84460; 84484; 84520; 85025; 85610; 85730; 93005; 94640; 96361; 96365; 99285; J1650; J1956; J7030; J7050; J7512; Q9967

== ENCOUNTER 2018-08-19 14:09 | Outpatient (RCR) | payer SELFPAY ==
[2018-08-16 07:59] VITALS: BMI 47.6
[~2018-08-19 14:09] MED LIST: ALBU8.5H IH; AZIT-1 PO; BUDE0.256 IH; DUL100/5PT INH; ENOX100D5 SQ; IRON1TAB34 PO; LISI-362 PO; LISI20TA29 PO; METO25TA23 PO; OXYC5TAB38 PO; PRED20TA6 PO; WARF-1 PO
== END 2018-10-06 14:58 | disposition home or self-care (01) ==
LOC: TCM 14:09
PROVIDERS: ATTEND Nurse Practitioner
DX: Z02.9 Encounter for administrative examinations, unspecified (principal)

== ENCOUNTER → 2018-08-28 | Outpatient (CLI) | payer SELFPAY ==
[2018-08-16 07:59] VITALS: BMI 47.6
[~2018-08-28] MED LIST changes: +IOPAMIDOL 76% 75 ML INFUS BTL 75 ML ONE
--- NOTE | 2018-08-28 11:37 | RADIOLOGY IMAGING REPORT ---
FACILITY: [facility] PATIENT NAME: Blessing Leblanc : 1965 MR: [id number] V: [id number] EXAM DATE: ORDERING PHYSICIAN: INNA AVERY TECHNOLOGIST: Location: [facility] [place] Patient: Blessing Leblanc : 1965 Visit/Account:[id number] Date of Sevice: 08/28/2018 CHEST W W/O CONTRAST History: Cough. Abnormal chest x-ray. ADDITIONAL CLINICAL HISTORY: Recent pulmonary emboli TECHNIQUE: Contiguous axial images were performed through the chest to the level of the adrenal gla nds with and without IV contrast. Coronal and sagittal reformatting was also performed. One of the following dose optimization techniques was utilized in the performance of this exam: Automated expos ure control; adjustment of the mA and/or kV according to the patient's size; or use of an iterative reconstruction technique. Specific details can be referenced in the facility's radiology CT exam ope rational policy. Contrast: 75 mL Isovue-370 COMPARISON STUDIES: Comparison CT angiogram chest 08/15/2018 which demonstrates extensive pulmonary emboli. Lungs / Pleura: Lung parenchyma is well-aerated. There is no evidence of infarction. Mediastinum/nodes: negative. Heart and vessels: There are persistent filling defects seen in the pulmonary arterial tree most ext ensive extending down the right lower lobe but also seen in other lobes as well. There has been some improvement since the previous exam with slight regression of clot burden. Given history states the prior outside chest x-ray demonstrated right hilar prominence which probably reflects pulmonary hype rtension related to the downstream clot burden. Musculoskeletal / Body wall: negative. Upper abdomen: negative. IMPRESSION: Persistent pulmonary emboli most extensive right lower lobe which demonstrate some regression since t he previous study. Clot burden is still moderate in severity. Report Dictated By: Siva Contreras MD at 08/28/2018 11:09 AM Report E-Signed By: Siva Contreras MD at 08/28/2018 11:33 AM WSN:[email or web address]
== END ==
LOC: CT 01:31
PROVIDERS: ATTEND Physician Assistant
DX: I27.82 Chronic pulmonary embolism (principal)
CPT/HCPCS: 71270; Q9967

== ENCOUNTER 2018-12-29 17:47 | Emergency (ER) | payer OTHER ==
[2018-08-16 07:59] VITALS: Wt 99.8 kg
[2018-12-29] MEDS: NS(*) 0.9% 1000 ML BAG 1,000 ML IV ONE ×2 (10:00→19:50)
[~2018-12-29 17:47] MED LIST changes: -IOPAMIDOL 76% 75 ML INFUS BTL 75 ML ONE
[2018-12-29] MEDS ORDERED: DOXY-179 PO (18:05)
[2018-12-29] MEDS ORDERED: MONT10TA PO (18:06)
--- NOTE | 2018-12-29 18:41 | ER Report ---
History and Physical Time Seen By MD: 18:41 Hx. of Stated Complaint: SINUS PRESSURE, LOPEZ, DIZZINESS, SEEN AT URGENT CARE AND TREATED WITH 2 ROUNDS OF ANTIBIOTICS AND STEROIDS W/O RELIEF, NUMBNESS IN FINGERS, "SNOWY" VISION HPI/ROS CHIEF COMPLAINT: sinus problems. HISTORY OF PRESENT ILLNESS: This is a 53 year old female. She has had over a month of sinus problems. Has pressure, headache, dizziness. Was treated with Flakita thromycin initially with absolutely no improvement. Then was placed on Doxycycline with no improvement. She has Prednisone with both courses of antibiotics as well. She takes nasal spray (flonase and a decongestant bid) chronically already. History of sinus problems with and ENT following her, but t ebony are no longer in practice. Stitches urgent care here in [place] with the recent treatment. On first evaluation, the patient had negative influenza test. She uses a Neti Pot regularly as well for sinus rinse. Was going to have sinus surgery at one time, but never was done due to some cardiac problems, with a cardiomyopathy. She has asthma as well and when she gets sick like this needs oxygens, and is on oxygen at this time. No shortness of breath, but cough and congestion. During the course of the month, has also had intermittent right abdominal pain as well as alternating diarrhea and constipation. No fevers noted. Has sore throat. No problems with urination. Eating and drinking okay. Allergies: Coded Allergies: Sulfa (Sulfonamide Antibiotics) (Verified Allergy, Unknown, 12/29/18) cefuroxime (Verified Allergy, Unknown, 12/29/18) Home Meds Active Scripts Ketorolac Tromethamine (KETOROLAC TROMETHAMINE) 10 Mg Tab, 10 MG PO Q6H PRN for PAIN, #12 TAB 0 Refills Prov:LAKEISHA KELLEY MD 12/29/18 Levofloxacin 500 Mg Tab (LEVOFLOXACIN 500 MG TAB) 500 Mg Tablet, 500 MG PO QDAY, #10 TAB 0 Refills Prov:LAKEISHA KELLEY MD 12/29/18 Iron Ag,Ps/C/Fa6/B12/Zn/SA/Sto (Niferex Tablet) 150MG-60-1 Tablet, 1 TAB PO BID, #60 TAB 1 Refill Prov:SAM SOLER MD 08/16/18 Reported Medications Montelukast Sodium (SINGULAIR) 10 Mg Tablet, 1 TAB PO QDAY, TAB 12/29/18 Doxycycline Hyclate (DOXYCYCLINE HYCLATE) 100 Mg Tablet, 100 MG PO BID 12/29/18 Lisinopril (LISINOPRIL) 20 Mg Tablet, 20 MG PO QDAY, TAB 08/15/18 Metoprolol Succinate (METOPROLOL SUCCINATE) 25 Mg Tab.er.24h, 1 TAB PO QDAY, TAB 08/15/18 Albuterol Sulfate 90 Mcg/Act (PROAIR HFA 90 MCG/ACT) 8.5 Gm Hfa.aer.ad, 1-2 PUFF IH 3-4XD, INHALER 08/15/18 Mometasone/Formoterol (DULERA 100 MCG/5 MCG INHALER) 13 Gm Inh, 13 GM INH, INH 08/15/18 Discontinued Reported Medications Azithromycin (ZITHROMAX) 250 Mg Tablet, 1 TAB PO QDAY, TAB 08/15/18 Prednisone (PREDNISONE) 20 Mg Tablet, 20 MG PO BID, TAB 08/15/18 Discontinued Scripts Oxycodone Hcl (OXYCODONE HCL) 5 Mg Tablet, 5-10 MG PO Q6H PRN for PAIN for 7 Days, #30 TAB 0 Refills Prov:SAM SLOER MD 08/16/18 Enoxaparin Sodium (LOVENOX) 100 Mg/1 Ml Disp.syrin, 100 MG SQ Q12H for 3 Days, #6 SYR Prov:SAM SOLER MD 08/16/18 Warfarin Sodium (COUMADIN) 5 Mg Tablet, 5 MG PO QDAY@13 for 30 Days, #30 TAB 0 Refills Prov:SAM SOLER MD 08/16/18 Reviewed Nurses Notes: Yes Hx Smoking: Yes (1/2 ppd) Exposure to Second Hand Smoke?: Yes Hx Substance Use Disorder: No Constitutional Vital Sign - Last 24 Hours 12/29/18 12/29/18 12/29/18 12/29/18 17:58 18:23 18:28 18:30 Temp 98.3 Pulse 92 Resp 14 B/P (MAP) 121/94 136/73 (94) 134/73 (93) Pulse Ox 85 O2 Delivery Room Air O2 Flow Rate 2.0 12/29/18 12/29/18 12/29/18 12/29/18 18:47 19:00 19:17 19:30 Pulse 83 78 B/P (MAP) 121/69 (86) 135/73 (93) Pulse Ox 94 92 12/29/18 12/29/18 12/29/18 12/29/18 19:47 20:00 20:16 20:17 Pulse 75 78 B/P (MAP) ???/??? (1665) 120/61 (80) Pulse Ox 95 96 12/29/18 12/29/18 12/29/18 12/29/18 20:30 20:47 21:00 21:17 Pulse 74 80 B/P (MAP) 138/80 (99) 140/69 (92) Pulse Ox 95 91 12/29/18 12/29/18 12/29/18 12/29/18 21:30 21:30 22:00 22:30 Pulse 81 75 73 B/P (MAP) 122/94 (103) 122/94 (103) 139/79 (99) 116/63 (80) Pulse Ox 92 91 95 12/29/18 22:42 Pulse 71 B/P (MAP) 97/60 (72) Pulse Ox 93 Physical Exam General Appearance: The patient is alert. No acute distress. Eyes: Pupils are equal, round. Reactive to light. No pallor, injection or icterus. ENT: Mucous membranes are moist. Normal oral mucosa. Posterior oropharynx with postnasal drainage and erythema but no exudates. Nasal mucosa is red and erythematous with increased mucus. Normal tympanic membranes and canals. Neck: Supple and non tender. Has anterior cervical lymphadenopathy, nontender. Respiratory: Lungs are clear to auscultation, no wheezes, rales or rhonchi present. She is using oxygen by nasal cannula at 2 L. No accessory muscle use or increased work of breathing. Cardiovascular: Regular rate and rhythm. No murmurs, gallops or rubs. Normal capillary refill. No edema. Gastrointestinal: Abdomen is soft, minimal tenderness throughout the right abdomen and she does have some right CVA tenderness. Nondistended. No masses or organomegaly. Normal active bowel sounds. Neurological: Alert and oriented x3. Skin: Warm and dry. Musculoskeletal: Extremities are nontender. DIFFERENTIAL DIAGNOSIS: After history and physical exam, differential diagnosis was considered for patient with ongoing sinus problems, likely viral, especially given the fact she's had no improvement with 2 courses of antibiotics and steroids, but we will do a sinus CT scan today to look further. Viral syndrome also likely given her bowel changes and abdominal pain but we'll look further at other possible causes of this looking urinary changes, labs and imaging. Medical Decision Making Data Points Result Diagram: 12/29/18 0000 12/29/18 0000 Laboratory Hematology Test 12/29/18 00:00 12/29/18 20:16 12/29/18 22:10 Red Blood Count 6.38 M/uL (4.17-5.56) Mean Corpuscular Volume 69.3 fL (80.0-96.0) Mean Corpuscular Hemoglobin 21.1 pg (26.0-33.0) Mean Corpuscular Hemoglobin Concent 30.4 g/dL (32.0-36.0) Red Cell Distribution Width 20.5 % (11.5-14.5) Mean Platelet Volume 8.4 fL (7.2-11.1) Neutrophils (%) (Auto) 69.7 % (39.4-72.5) Lymphocytes (%) (Auto) 17.9 % (17.6-49.6) Monocytes (%) (Auto) 9.2 % (4.1-12.4) Eosinophils (%) (Auto) 1.7 % (0.4-6.7) Basophils (%) (Auto) 1.5 % (0.3-1.4) Nucleated RBC Relative Count (auto) 0.2 /100WBC Neutrophils # (Auto) 8.6 K/uL (2.0-7.4) Lymphocytes # (Auto) 2.2 K/uL (1.3-3.6) Monocytes # (Auto) 1.1 K/uL (0.3-1.0) Eosinophils # (Auto) 0.2 K/uL (0.0-0.5) Basophils # (Auto) 0.2 K/uL (0.0-0.1) Nucleated RBC Absolute Count (auto) 0.02 K/uL Peripheral Blood Smear No Y/N Sodium Level 138 mmol/L (137-145) Potassium Level 4.5 mmol/L (3.5-5.0) Chloride Level 101 mmol/L (98-107) Carbon Dioxide Level 27 mmol/L (22-31) Blood Urea Nitrogen 24 mg/dl (7-18) Creatinine 0.80 mg/dl (0.52-1.04) Glomerular Filtration Rate Calc > 60.0 Random Glucose 103 mg/dl (75-110) Calcium Level 9.4 mg/dl (8.4-10.2) Total Bilirubin 0.2 mg/dl (0.2-1.3) Aspartate Amino Transf (AST/SGOT) 30 U/L (0-35) Alanine Aminotransferase (ALT/SGPT) 25 U/L (0-56) Alkaline Phosphatase 83 U/L (0-126) Total Protein 7.6 g/dl (6.3-8.2) Albumin 4.4 g/dl (3.5-5.0) Amylase Level 105 U/L (0-110) Lipase 242 U/L (23-300) Urine Color Yellow Urine Clarity Slightly-cloudy Urine pH 6.0 pH (4.8-9.5) Urine Specific [place] 1.023 Urine Protein Negative mg/dL (NEGATIVE) Urine Glucose (UA) Negative mg/dL (NEGATIVE) Urine Ketones Negative mg/dL (NEGATIVE) Urine Blood Negative (NEGATIVE) Urine Nitrite Negative (NEGATIVE) Urine Bilirubin Negative (NEGATIVE) Urine Urobilinogen Negative mg/dL (0.2-1.9) Urine Leukocyte Esterase Negative (NEGATIVE) Urine RBC <1 /HPF (0-2/HPF) Urine WBC 4 /HPF (0-5/HPF) Urine Squamous Epithelial Cells Many /LPF (</=FEW) Urine Bacteria Negative /HPF (NONE-FEW) Urine Mucus Few /HPF (NONE-FEW) Influenza Virus Type A (PCR) Negative (NEGATIVE) Influenza Virus Type B (PCR) Negative (NEGATIVE) Chemistry Test 12/29/18 00:00 12/29/18 20:16 12/29/18 22:10 White Blood Count 12.3 k/uL (4.5-11.0) Red Blood Count 6.38 M/uL (4.17-5.56) Hemoglobin 13.5 g/dL (12.0-16.0) Hematocrit 44.3 % (34.0-47.0) Mean Corpuscular Volume 69.3 fL (80.0-96.0) Mean Corpuscular Hemoglobin 21.1 pg (26.0-33.0) Mean Corpuscular Hemoglobin Concent 30.4 g/dL (32.0-36.0) Red Cell Distribution Width 20.5 % (11.5-14.5) Platelet Count 242 K/uL (150-450) Mean Platelet Volume 8.4 fL (7.2-11.1) Neutrophils (%) (Auto) 69.7 % (39.4-72.5) Lymphocytes (%) (Auto) 17.9 % (17.6-49.6) Monocytes (%) (Auto) 9.2 % (4.1-12.4) Eosinophils (%) (Auto) 1.7 % (0.4-6.7) Basophils (%) (Auto) 1.5 % (0.3-1.4) Nucleated RBC Relative Count (auto) 0.2 /100WBC Neutrophils # (Auto) 8.6 K/uL (2.0-7.4) Lymphocytes # (Auto) 2.2 K/uL (1.3-3.6) Monocytes # (Auto) 1.1 K/uL (0.3-1.0) Eosinophils # (Auto) 0.2 K/uL (0.0-0.5) Basophils # (Auto) 0.2 K/uL (0.0-0.1) Nucleated RBC Absolute Count (auto) 0.02 K/uL Peripheral Blood Smear No Y/N Glomerular Filtration Rate Calc > 60.0 Calcium Level 9.4 mg/dl (8.4-10.2) Total Bilirubin 0.2 mg/dl (0.2-1.3) Aspartate Amino Transf (AST/SGOT) 30 U/L (0-35) Alanine Aminotransferase (ALT/SGPT) 25 U/L (0-56) Alkaline Phosphatase 83 U/L (0-126) Total Protein 7.6 g/dl (6.3-8.2) Albumin 4.4 g/dl (3.5-5.0) Amylase Level 105 U/L (0-110) Lipase 242 U/L (23-300) Urine Color Yellow Urine Clarity Slightly-cloudy Urine pH 6.0 pH (4.8-9.5) Urine Specific [place] 1.023 Urine Protein Negative mg/dL (NEGATIVE) Urine Glucose (UA) Negative mg/dL (NEGATIVE) Urine Ketones Negative mg/dL (NEGATIVE) Urine Blood Negative (NEGATIVE) Urine Nitrite Negative (NEGATIVE) Urine Bilirubin Negative (NEGATIVE) Urine Urobilinogen Negative mg/dL (0.2-1.9) Urine Leukocyte Esterase Negative (NEGATIVE) Urine RBC <1 /HPF (0-2/HPF) Urine WBC 4 /HPF (0-5/HPF) Urine Squamous Epithelial Cells Many /LPF (</=FEW) Urine Bacteria Negative /HPF (NONE-FEW) Urine Mucus Few /HPF (NONE-FEW) Influenza Virus Type A (PCR) Negative (NEGATIVE) Influenza Virus Type B (PCR) Negative (NEGATIVE) Urinalysis Test 12/29/18 20:16 Urine Color Yellow Urine Clarity Slightly-cloudy Urine pH 6.0 pH (4.8-9.5) Urine Specific [place] 1.023 Urine Protein Negative mg/dL (NEGATIVE) Urine Glucose (UA) Negative mg/dL (NEGATIVE) Urine Ketones Negative mg/dL (NEGATIVE) Urine Blood Negative (NEGATIVE) Urine Nitrite Negative (NEGATIVE) Urine Bilirubin Negative (NEGATIVE) Urine Urobilinogen Negative mg/dL (0.2-1.9) Urine Leukocyte Esterase Negative (NEGATIVE) Urine RBC <1 /HPF (0-2/HPF) Urine WBC 4 /HPF (0-5/HPF) Urine Squamous Epithelial Cells Many /LPF (</=FEW) Urine Bacteria Negative /HPF (NONE-FEW) Urine Mucus Few /HPF (NONE-FEW) EKG/Imaging Imaging EXAMINATION: CT head without IV contrast HISTORY: Sinus congestion. COMPARISON: CT sinus from 12/29/2018. TECHNIQUE: Contiguous axial images were obtained from the skull base to the vertex without intravenous contrast. Sagittal and coronal reformatted images are also submitted. One of the following dose optimization techniques was utilized in the performance of this exam: Automated exposure control; adjustment of the mA and/or kV according to the patient's size; or use of an iterative reconstruction technique. Specific details can be referenced in the facility's radiology CT exam operational policy. FINDINGS: Brain volume: Normal. Ventricles: Normal. Acute ischemic changes: None. Hemorrhage: No acute intracranial hemorrhage. Masses/edema: None. Tierney-white: Negative. White matter: Normal. Vessels: Negative. Extra-axial: Negative. Calvarium/scalp: Negative. Skull base/visualized face: Negative. Visualized sinuses/orbits: Mild mucosal thickening in the right maxillary sinus and left sphenoid sinus. There is nasal septal deviation to the right. IMPRESSION: 1. No acute hemorrhage or intracranial mass lesion. No CT evidence of acute infarct. 2. Mild inflammation of the right maxillary sinus and left sphenoid sinus well be described in further detail on the concurrently performed CT sinus report. Report Dictated By: Marianne Shaffer MD at 12/29/2018 8:21 PM EXAMINATION: CT sinus without IV contrast HISTORY: Sinus congestion. COMPARISON: CT head from 12/29/2018. TECHNIQUE: Contiguous axial images were obtained through the paranasal sinuses without intravenous contrast administration. Coronal and sagittal reformatted images were obtained from the axial source data. One of the following dose optimization techniques was utilized in the performance of this exam: Automated exposure control; adjustment of the mA and/or kV according to the patient's size; or use of an iterative reconstruction technique. Specific details can be referenced in the facility's radiology CT exam operational policy. FINDINGS: Maxillary sinuses: There is patchy mucosal thickening with inspissated air in the right maxillary sinus. Frontal sinuses: Minimal mucosal thickening in the bilateral inferior frontal sinuses. Small frontal air cell on the left. Ethmoid air cells: Minimal mucosal thickening in the bilateral ethmoid air cells. Sphenoid sinuses: The left sphenoid sinus is larger than the right, which is a normal variant. The intersinus septum inserts on the anterior wall of the carotid canal. Mild mucosal thickening in the left sphenoid sinus. Ostiomeatal units: Patent. Nasal septum/nasal cavity: There is nasal septal deviation to the right with a bone spur projecting laterally causing moderate narrowing of the right nasal cavity. Orbits: Negative. Visualized intracranial contents/soft tissues: Negative. TMJs: Negative. There is dental disease of the bilateral mandibular molars partly visualized. IMPRESSION: 1. Patchy nonobstructive inflammation of the paranasal sinuses could be acute or chronic, and is worst in the right maxillary sinus. 2. Nasal septal deviation to the right with a bone spur projecting laterally causing moderate narrowing of the right nasal cavity. 3. Dental disease of the bilateral mandibular molars partly visualized. Report Dictated By: Marianne Shaffer MD at 12/29/2018 8:24 PM EXAMINATION: CT abdomen and pelvis with IV contrast HISTORY: Abdominal pain. Right flank pain. Nausea vomiting diarrhea. TECHNIQUE: Axial CT images of the abdomen and pelvis were obtained with IV contrast, with coronal and sagittal 2D reconstructed images. One of the following dose optimization techniques was utilized in the performance of this exam: Automated exposure control; adjustment of the mA and/or kV according to the patient's size; or use of an iterative carolann nstruction technique. Specific details can be referenced in the facility's radiology CT exam operational policy. Contrast: 75 mL of IV Isovue-370. COMPARISON: None. FINDINGS: Liver: Negative. Gallbladder and bile ducts: Negative. Spleen: Negative. Pancreas: Negative. Adrenal glands: Negative. Kidneys: There is chronic cortical atrophy of the upper pole of the right kidney. Single punctate nonobstructing 1-2 mm calculus in the mid right kidney. There is mild cortical scarring along the lower pole of the right kidney. Normal size and morphology of the left kidney. No left-sided urinary calculi. No hydronephrosis. Bowel and peritoneum: The small bowel and colon are normal in caliber, without evidence of obstruction or any focal inflammatory process. There are a few scattered colonic diverticula without evidence of diverticulitis. Normal appendix. No free fluid or free intraperitoneal air. Pelvic structures: Negative. Lymph node assessment: Negative. Vessels: Negative. Musculoskeletal: No acute osseous findings. Chronic degenerative changes along the spine. There is moderate disc space narrowing at L3-L4, with advanced facet arthropathy along the lower lumbar facet joints. Body wall: Negative. Lung bases: Negative. IMPRESSION: 1. No CT evidence of acute intraabdominal pathology. 2. Chronic parenchymal atrophy along the upper pole of the right kidney with mild cortical scarring along the lower pole. Single punctate nonobstructing right renal calculus. 3. Mild scattered colonic diverticulosis without evidence of diverticulitis. 4. Normal appendix. Report Dictated By: Rohit Eng MD at 12/29/2018 8:30 PM Examination: CHEST PA LAT Comparison: CT 08/28/2018. History: Congestion. Smoker. Findings: Cardiac and hilar contour size is normal. Mild bronchial thickening. No consolidation or discrete nodule. No pneumothorax, edema, or effusion. Osseous structures are intact. IMPRESSION: Mild bronchial thickening is suggestive of an acute versus chronic bronchitis. No consolidation. Report Dictated By: Gus Garrison MD at 12/29/2018 8:32 PM ED Course/Re-evaluation Clinical Indication for ER IV: Hydration, IV Access ED Course After initial evaluation, multiple areas of complaints. With the sinusitis and headache, went ahead and did a sinus CT scan and a head CT scan. This did show sinus disease. Uncertain if this is viral or more structural or if it represents bacterial sinusitis that has failed treatment. The abdominal complaints could certainly be due to a viral syndrome or could be due to side effects from the antibiotic use recently as well. CT scan of the abdomen and pelvis was negative as were her labs. Reviewed all this with the patient and after discussion, she will continue with her regular medications. We will give her some Toradol to use for pain. Starting Levaquin at this time although discussed this with the patient that it may be best to see her nose and throat first prior to starting this medicine however given her difficulties with pain at this time his symptoms we eventually decided to go ahead and start the Levaquin now. Decision to Disposition Date: Dec 29, 2018 Decision to Disposition Time: 22:30 Depart Departure Latest Vital Signs Vital Signs Date Time Temp Pulse Resp B/P (MAP) Pulse Ox O2 Delivery O2 Flow Rate FiO2 12/29/18 22:42 71 97/60 (72) 93 12/29/18 18:28 2.0 12/29/18 17:58 98.3 14 Room Air Impression: Primary Impression: Sinusitis Condition: Improved Disposition: HOME OR SELF-CARE New Scripts Ketorolac Tromethamine (KETOROLAC TROMETHAMINE) 10 Mg Tab 10 MG PO Q6H PRN for PAIN, #12 TAB 0 Refills Prov: LAKEISHA KELLEY MD 12/29/18 Levofloxacin 500 Mg Tab (LEVOFLOXACIN 500 MG TAB) 500 Mg Tablet 500 MG PO QDAY, #10 TAB 0 Refills Prov: LAKEISHA KELLEY MD 12/29/18 Patient Instructions: Sinusitis (ED) Additional Instructions: Continue other medications. Start Toradol 10mg every 6 hours as needed for pain. Start Levaquin 500mg once a day. Call Dr. Eng's office to schedule a follow-up appointment. Problem Qualifiers Primary Impression: Sinusitis Sinusitis location: other Chronicity: subacute Qualified Codes: J01.80 - Other acute sinusitis LKAEISHA KELLEY MD Dec 29, 2018 18:41
[2018-12-29 19:12] LABS: PLATELET COUNT, AUTOMATED 242 K/uL (150-450)
[2018-12-29] MEDS ORDERED: IOPAMIDOL 61% 100 ML INFUS BTL 0 ML ONE (19:12)
[2018-12-29] MEDS ORDERED: IOPAMIDOL 76% 100 ML INFUS BTL 100 ML ONE (19:12)
--- NOTE | 2018-12-29 20:28 | RADIOLOGY IMAGING REPORT ---
FACILITY: PATIENT NAME: Blessing Leblanc : 1965 MR: [id number] V: [id number] EXAM DATE: ORDERING PHYSICIAN: LAKEISHA KELLEY TECHNOLOGIST: Location: [facility] [place] Patient: Blessing Leblanc : 1965 Visit/Account:[id number] Date of Sevice: 12/29/2018 EXAMINATION: CT head without IV contrast HISTORY: Sinus congestion. COMPARISON: CT sinus from 12/29/2018. TECHNIQUE: Contiguous axial images were obtained from the skull base to the vertex without intraven ous contrast. Sagittal and coronal reformatted images are also submitted. One of the following dose optimization techniques was utilized in the performance of this exam: Autom ated exposure control; adjustment of the mA and/or kV according to the patient's size; or use of an i terative reconstruction technique. Specific details can be referenced in the facility's radiology C T exam operational policy. FINDINGS: Brain volume: Normal. Ventricles: Normal. Acute ischemic changes: None. Hemorrhage: No acute intracranial hemorrhage. Masses/edema: None. Tierney-white: Negative. White matter: Normal. Vessels: Negative. Extra-axial: Negative. Calvarium/scalp: Negative. Skull base/visualized face: Negative. Visualized sinuses/orbits: Mild mucosal thickening in the right maxillary sinus and left sphenoid si nus. There is nasal septal deviation to the right. IMPRESSION: 1. No acute hemorrhage or intracranial mass lesion. No CT evidence of acute infarct. 2. Mild inflammation of the right maxillary sinus and left sphenoid sinus well be described in [facility] detail on the concurrently performed CT sinus report. Report Dictated By: Marianne Shaffer MD at 12/29/2018 8:21 PM Report E-Signed By: Marianne Shaffer MD at 12/29/2018 8:24 PM WSN:[email or web address]
--- NOTE | 2018-12-29 20:33 | RADIOLOGY IMAGING REPORT ---
FACILITY: [facility] PATIENT NAME: Blessing Leblanc : 1965 MR: [id number] V: [id number] EXAM DATE: ORDERING PHYSICIAN: LAKEISHA KELLEY TECHNOLOGIST: Location: Patient: Blessing Leblanc : 1965 Visit/Account:[id number] Date of Sevice: 12/29/2018 EXAMINATION: CT sinus without IV contrast HISTORY: Sinus congestion. COMPARISON: CT head from 12/29/2018. TECHNIQUE: Contiguous axial images were obtained through the paranasal sinuses without intravenous c ontrast administration. Coronal and sagittal reformatted images were obtained from the axial source d michael. One of the following dose optimization techniques was utilized in the performance of this exam: Autom ated exposure control; adjustment of the mA and/or kV according to the patient's size; or use of an i terative reconstruction technique. Specific details can be referenced in the facility's radiology C T exam operational policy. FINDINGS: Maxillary sinuses: There is patchy mucosal thickening with inspissated air in the right maxillary sin us. Frontal sinuses: Minimal mucosal thickening in the bilateral inferior frontal sinuses. Small fronta l air cell on the left. Ethmoid air cells: Minimal mucosal thickening in the bilateral ethmoid air cells. Sphenoid sinuses: The left sphenoid sinus is larger than the right, which is a normal variant. The i ntersinus septum inserts on the anterior wall of the carotid canal. Mild mucosal thickening in the l eft sphenoid sinus. Ostiomeatal units: Patent. Nasal septum/nasal cavity: There is nasal septal deviation to the right with a bone spur projecting l aterally causing moderate narrowing of the right nasal cavity. Orbits: Negative. Visualized intracranial contents/soft tissues: Negative. TMJs: Negative. There is dental disease of the bilateral mandibular molars partly visualized. IMPRESSION: 1. Patchy nonobstructive inflammation of the paranasal sinuses could be acute or chronic, and is wor st in the right maxillary sinus. 2. Nasal septal deviation to the right with a bone spur projecting laterally causing moderate narrow ing of the right nasal cavity. 3. Dental disease of the bilateral mandibular molars partly visualized. Report Dictated By: Marianne Shaffer MD at 12/29/2018 8:24 PM Report E-Signed By: Marianne Shaffer MD at 12/29/2018 8:29 PM WSN:[email or web address]
--- NOTE | 2018-12-29 20:37 | RADIOLOGY IMAGING REPORT ---
FACILITY: [facility] PATIENT NAME: Blessing Leblanc : 1965 MR: [id number] V: [id number] EXAM DATE: ORDERING PHYSICIAN: LAKEISHA KELLEY TECHNOLOGIST: Location: [facility] - [place] Patient: Blessing Leblanc : 1965 Visit/Account:[id number] Date of Sevice: 12/29/2018 Examination: CHEST PA LAT Comparison: CT 08/28/2018. History: Congestion. Smoker. Findings: Cardiac and hilar contour size is normal. Mild bronchial thickening. No consolidation or di screte nodule. No pneumothorax, edema, or effusion. Osseous structures are intact. IMPRESSION: Mild bronchial thickening is suggestive of an acute versus chronic bronchitis. No consolidation. Report Dictated By: Gus Garrison MD at 12/29/2018 8:32 PM Report E-Signed By: Gus Garrison MD at 12/29/2018 8:34 PM WSN:[id number]
--- NOTE | 2018-12-29 20:49 | RADIOLOGY IMAGING REPORT ---
FACILITY: [facility] PATIENT NAME: Blessing Leblanc : 1965 MR: [id number] V: [id number] EXAM DATE: ORDERING PHYSICIAN: LAKEISHA KELLEY TECHNOLOGIST: Location: [facility] Patient: Blessing Leblanc : 1965 Visit/Account:[id number] Date of Sevice: 12/29/2018 EXAMINATION: CT abdomen and pelvis with IV contrast HISTORY: Abdominal pain. Right flank pain. Nausea vomiting diarrhea. TECHNIQUE: Axial CT images of the abdomen and pelvis were obtained with IV contrast, with coronal a nd sagittal 2D reconstructed images. One of the following dose optimization techniques was utilized in the performance of this exam: Autom ated exposure control; adjustment of the mA and/or kV according to the patient's size; or use of an i terative reconstruction technique. Specific details can be referenced in the facility's radiology C T exam operational policy. Contrast: 75 mL of IV [id number]-[id number]. COMPARISON: None. FINDINGS: Liver: Negative. Gallbladder and bile ducts: Negative. Spleen: Negative. Pancreas: Negative. Adrenal glands: Negative. Kidneys: There is chronic cortical atrophy of the upper pole of the right kidney. Single punctate no nobstructing 1-2 mm calculus in the mid right kidney. There is mild cortical scarring along the lower pole of the right kidney. Normal size and morphology of the left kidney. No left-sided urinary calcu li. No hydronephrosis. Bowel and peritoneum: The small bowel and colon are normal in caliber, without evidence of obstructi on or any focal inflammatory process. There are a few scattered colonic diverticula without evidence of diverticulitis. Normal appendix. No free fluid or free intraperitoneal air. Pelvic structures: Negative. Lymph node assessment: Negative. Vessels: Negative. Musculoskeletal: No acute osseous findings. Chronic degenerative changes along the spine. There is moderate disc space narrowing at L3-L4, with advanced facet arthropathy along the lower lumbar facet joints. Body wall: Negative. Lung bases: Negative. IMPRESSION: 1. No CT evidence of acute intraabdominal pathology. 2. Chronic parenchymal atrophy along the upper pole of the right kidney with mild cortical scarring a long the lower pole. Single punctate nonobstructing right renal calculus. 3. Mild scattered colonic diverticulosis without evidence of diverticulitis. 4. Normal appendix. Report Dictated By: Rohit Eng MD at 12/29/2018 8:30 PM Report E-Signed By: Rohit Eng MD at 12/29/2018 8:45 PM WSN:[id number]
[2018-12-29] MEDS ORDERED: KETOROLAC 30 MG/ML VIAL IVP ONE (21:50)
[2018-12-29] MEDS ORDERED: LEVOFLOXACIN 500 MG TAB PO ONE (22:30)
[2018-12-29] MEDS ORDERED: KETOROLAC TROM 10 MG TAB TH PO ONE (22:30)
[2018-12-29] MEDS ORDERED: KET10 PO (22:32)
[2018-12-29] MEDS ORDERED: LEVO500T83 PO (22:32)
[2018-12-29 22:42] VITALS: BP 97/60
== END 2018-12-29 22:50 | disposition home or self-care (01) ==
LOC: ER 18:49
DX: J01.80 Other acute sinusitis (principal)
CPT/HCPCS: 70450; 70486; 71046; 74177; 81001; 82150; 83690; 85025; 87502; 96361; 96374; 99284; J1885; J7030; Q9967; 82040; 82247; 82310; 82374; 82435; 82565; 82947; 84075; 84132; 84155; 84295; 84450; 84460; 84520